=== PATIENT | female | born 1975 | race African-American/Black ===

== ENCOUNTER 2017-08-20 08:50 | Emergency (ER) | payer MEDICAID, OTHER ==
[~2017-08-20] VITALS: Ht 165.1 cm; Wt 86.2 kg
[~2017-08-20 08:50] MED LIST: ATIVAN1 MG ORAL; UNOBMED
[2017-08-20] MEDS ORDERED: ERYTHROMYCIN1 G1 OP (10:23)
[2017-08-20 10:35] VITALS: BP 132/80
--- NOTE | 2017-08-20 13:14 | Emergency Room Report ---
History of Present Illness General Chief Complaint: Eye Problems Source: Patient Present Illness HPI 42-year-old female presenting with R eye lid swelling, and right eye drainage for one week. Patient states that she thought eyedrops but lost them. States that she has yellow discharge especially in the morning. Also stated that she has right eyelid swelling for the last week. She is in pain and cold compresses. No blurry vision. No fever no chills Allergies: Coded Allergies: SULFA (SULFONAMIDE ANTIBIOTICS) (Unverified Allergy, Unknown, 06/01/14) Patient History Past Medical History: see triage record Past Surgical History: none Pertinent Family History: none Reviewed Nursing Documentation: PMH: Agreed, PSxH: Agreed Nursing Documentation-PMH Hx Hypertension: Yes Review of Systems All Other Systems: negative except mentioned in HPI Physical Exam Vital Signs Date Time Temp Pulse Resp B/P (MAP) Pulse Ox O2 Delivery O2 Flow Rate FiO2 08/20/17 08:59 97.5 82 20 137/87 100 Room Air Sp02 EP Interpretation: reviewed, normal General Appearance: normal inspection, well appearing, no apparent distress, alert, GCS 15, non-toxic Head: normocephalic, atraumatic Eyes: right eye other - Right upper eyelid Chalazion, slightly tender, right eye sclera is clear, no purulent drainage noted ENT: normal ENT inspection, normal pharynx, normal voice, moist mucus membranes Neck: normal inspection, full range of motion, supple Respiratory: normal inspection, lungs clear, normal breath sounds, no respiratory distress, no retraction, no wheezing, speaking full sentences, chest symmetrical Cardiovascular #1: normal inspection, regular rate, rhythm, normal capillary refill Cardiovascular #2: 2+ radial (R), 2+ radial (L) Gastrointestinal: normal inspection, non tender, soft, non-distended, no guarding Musculoskeletal: normal inspection, back normal, normal range of motion, non- tender Neurologic: normal inspection, alert, oriented x3, responsive, motor strength/ tone normal, sensory intact, normal gait, speech normal Psychiatric: normal inspection, judgement/insight normal, memory normal Skin: normal inspection, normal color, no rash, warm/dry, well hydrated, normal turgor Medical Decision Making Diagnostic Impression: Primary Impression: Conjunctivitis Additional Impression: Chalazion of right eyelid ER Course 42-year-old female with right eyelid swelling in right eye purulent drainage DDX: Bacterial conjunctivitis, Chalazion Plan: None ER course: Patient has remained stable during ED stay. Disposition: Patient is to be discharged to home. Prescriptions given are erythromycin ointment Patient is instructed to follow up with their primary care doctor within 5 days. Patient instructed to put warm compresses on right eye Please note that this Emergency Department Report was dictated using [employer] technology software, occasionally this can lead to erroneous entry secondary to interpretation by the dictation equipment Last Vital Signs Date Time Temp Pulse Resp B/P (MAP) Pulse Ox O2 Delivery O2 Flow Rate FiO2 08/20/17 10:35 98.0 79 18 132/80 99 Room Air Disposition: HOME, SELF-CARE Condition: Stable Scripts Erythromycin Base (Erythromycin) 1 Gm Oint...g. 1 GM OP BID for 5 Days, #1 TUBE Prov: Brandon Arora M.D. 08/20/17 Patient Instructions: Chalazion, Bacterial Conjunctivitis Brandon Arora M.D. Aug 20, 2017 13:14
== END 2017-08-20 10:35 | disposition home or self-care (01) ==
LOC: EMR 09:20
DX: H10.9 Unspecified conjunctivitis (principal); H00.11 Chalazion right upper eyelid; I10 Essential (primary) hypertension; Z88.2 Allergy status to sulfonamides
CPT/HCPCS: 99283

== ENCOUNTER 2017-09-12 18:05 | Emergency (ER) | payer MEDICAID, OTHER ==
[~2017-09-12] VITALS: Ht 175.3 cm; Wt 83.9 kg
[~2017-09-12 18:05] MED LIST changes: +ERYTHROMYCIN1 G1 OP
[2017-09-12] MEDS ORDERED: TYLENOL EXTRA500 MG ORAL (18:40)
[2017-09-12] MEDS ORDERED: CEPHALEXIN500 MG ORAL (18:40)
--- NOTE | 2017-09-12 18:40 | Emergency Room Report ---
History of Present Illness General Chief Complaint: Eye Problems Source: Patient, Medical Record Present Illness HPI 42 yo female presents to ER complaining of right upper eyelid pain and swelling [id number]. Patient was seen in ER 2 weeks ago and discharged with antibiotic ointment for eye; states she completed antibiotic treatment; states symptoms improved but after completion of antibiotics the pain and size of her eyelid increased. Patient denies drainage from eye; denies crusting at corner of eyes. Patient denies FB sensation, loss of vision, double vision, eye tearing, hearing loss, ear pain. Patient complains of pain to touch of upper eyelid. Patient denies fever, chest pain, SOB, rash. Allergies: Coded Allergies: SULFA (SULFONAMIDE ANTIBIOTICS) (Unverified Allergy, Unknown, 06/01/14) Patient History Past Medical History: see triage record Social History: Reports: smoking Last Menstrual Period: 09/04/17 Immunizations: UTD Reviewed Nursing Documentation: PMH: Agreed, PSxH: Agreed Nursing Documentation-PMH Past Medical History: No History, Except For Hx Hypertension: Yes Review of Systems All Other Systems: negative except mentioned in HPI Physical Exam Vital Signs Date Time Temp Pulse Resp B/P (MAP) Pulse Ox O2 Delivery O2 Flow Rate FiO2 09/12/17 18:22 97.9 85 18 129/82 98 Room Air Sp02 EP Interpretation: reviewed, normal General Appearance: no apparent distress, alert, GCS 15, non-toxic Head: normocephalic, atraumatic Eyes: right eye other - right eye, lateral upper eyelid: 1cm papule, closed, does not come to a point, TTP, erythematous, bilateral eye normal inspection, bilateral eye PERRL, bilateral eye EOMI ENT: hearing grossly normal, normal pharynx, no angioedema, normal voice, TMs + canals normal, uvula midline Neck: full range of motion, supple/symm/no masses Respiratory: chest non-tender, lungs clear, normal breath sounds, speaking full sentences Cardiovascular #1: regular rate, rhythm, no edema Musculoskeletal: back normal, digits/nails normal, gait/station normal, normal range of motion, non-tender Neurologic: alert, oriented x3, responsive, motor strength/tone normal, sensory intact, speech normal Psychiatric: mood/affect normal Skin: normal color, no rash, warm/dry, palpation normal, well hydrated Lymphatic: no adenopathy Medical Decision Making PA Attestation Dr. Graham is my supervising Physician whom patient management has been discussed with. Diagnostic Impression: Primary Impression: Cellulitis of right eyelid ER Course Pt. presents to the ED c/o cellulitis.. Ddx considered but are not limited to rash, cellulitis, abscess, chalazion, stye. Vital signs: are WNL, pt. is afebrile ORDERS: None required at this time, the diagnosis is clinical ED INTERVENTIONS: None required at this time. DISCHARGE: -Rx provided for Keflex -Rx provided for Acetaminophen At this time pt. is stable for d/c to home. Will provide printed patient care instructions, and any necessary prescriptions. Patient instructed to complete current course of antibiotics. Care plan and follow up instructions have been discussed with the patient prior to discharge. Patient instructed to follow-up with primary care provider in 2-3 days and discuss further referral to ophthalmology and/or derm as needed. Patient questions asked and answered. ER precautions given. Patient instructed to return to ER immediately for any new or worsening of symptoms including but not limited to fever, increasing pain , loss of vision. Last Vital Signs Date Time Temp Pulse Resp B/P (MAP) Pulse Ox O2 Delivery O2 Flow Rate FiO2 09/12/17 18:22 97.9 85 18 129/82 98 Room Air Disposition: HOME, SELF-CARE Condition: Stable Scripts Cephalexin* (KEFLEX*) 500 Mg Capsule 500 MG ORAL EVERY 12 HOURS for 7 Days, #14 CAP 0 Refills Prov: Ravindra Smith 09/12/17 Acetaminophen* (TYLENOL EXTRA STRENGTH*) 500 Mg Tablet 500 MG ORAL Q8H Y for Prn Headache/Temp > 101, #30 TAB 0 Refills Prov: Ravindra Smith 09/12/17 Patient Instructions: Cellulitis, [id number], Bacterial Conjunctivitis, Easy- to-Read Additional Instructions: Followup with primary care provider in 2-3 days to discuss further treatment and referral to ophthalmology. Take medications as directed. Patient questions asked and answered. ER precautions given, patient instructed to return to ER immediately for any new or worsening of symptoms. Ravindra Smith Sep 12, 2017 18:40
[2017-09-12 19:56] VITALS: BP 129/82
== END 2017-09-12 19:25 | disposition home or self-care (01) ==
LOC: EMR 18:49
DX: H00.031 Abscess of right upper eyelid (principal); I10 Essential (primary) hypertension; Z88.2 Allergy status to sulfonamides
CPT/HCPCS: 99283